=== PATIENT | female | born 2000 | race Caucasian/White ===

== ENCOUNTER → 2018-02-14 | Outpatient (CLI) | payer OTHER | LOC: FIMAGING 11:35 | PROVIDERS: ATTEND Family Medicine | DX: R10.2 Pelvic and perineal pain (principal) ==

== ENCOUNTER 2018-08-20 11:46 | Emergency (ER) | payer OTHER ==
[2018-08-20] MEDS ORDERED: NS 1,000 ML IV ONE (12:40)
[2018-08-20] MEDS ORDERED: KETOROLAC 30 MG/1 ML SDV IVP ONE (12:58)
[2018-08-20 12:59] LABS: PLATELET COUNT 302 10^3/uL (150-400)
--- NOTE | 2018-08-20 13:48 | EDPHY ---
H & P Stated Complaint: Woke up at 11am with LLQ pain radiating to left flank, N/V. Time Seen by Provider: 08/20/18 13:10 HPI/ROS: CHIEF COMPLAINT: Left flank pain HISTORY OF PRESENT ILLNESS: 18-year-old female presents with left flank pain. Sudden onset of severe left flank pain this morning. The pain waxed and wane and radiated to the left lower quadrant. Associated with vomiting and diaphoresis. No urinary symptoms, fever or diarrhea. Has an IUD in place, last menstrual period was 1 year ago. No vaginal discharge. No prior history of kidney stones or ovarian cyst. REVIEW OF SYSTEMS: complete 10 point ROS reviewed and is negative except for the noted elements in the HPI - Personal History LMP (Females 10-55): IUD In Place Current Tetanus Diphtheria and Acellular Pertussis (TDAP): Unsure - Medical/Surgical History Hx Asthma: No Hx Chronic Respiratory Disease: No Hx Diabetes: No Hx Cardiac Disease: No Hx Renal Disease: No Hx Cirrhosis: No Hx Alcoholism: No Hx HIV/AIDS: No Hx Splenectomy or Spleen Trauma: No Other PMH: Asthma. - Social History Smoking Status: Current every day smoker Alcohol Use: Sober Drug Use: None - Physical Exam Exam: General Appearance: Alert, pleasant, appears comfortable Eyes: Pupils equal and round, no conjunctival pallor ENT, Mouth: Mucous membranes moist Neck: Normal inspection Respiratory: Lungs are clear to auscultation Cardiovascular: Regular rate and rhythm Gastrointestinal: Abdomen is soft, left lower quadrant tenderness Back: No CVA tenderness Neurological: A&O, nonfocal, normal gait Skin: Warm and dry Extremities: Normal inspection Psychiatric: Mood and affect normal Constitutional: Initial Vital Signs Temperature (C) 36.7 C 08/20/18 11:50 Heart Rate 81 08/20/18 11:50 Respiratory Rate 18 08/20/18 11:50 Blood Pressure 145/98 H 08/20/18 11:50 O2 Sat (%) 98 08/20/18 11:50 O2 Delivery Mode Room Air Allergies/Adverse Reactions: Penicillins Allergy (Verified 08/20/18 11:53) Home Medications: Medication Instructions Recorded Cephalexin [Keflex (*)] 500 mg PO BID #10 cap 08/20/18 Lamictal 08/20/18 Medical Decision Making - Diagnostics Imaging Results: Abdomen/Pelvis CT 08/20/18 14:08 Impression: 1. Nonobstructive left nephrolithiasis. This exam does not exclude pyelonephritis. 2. Moderate constipation. 3. Appropriately-positioned intrauterine device. Findings were discussed with HALEY GOLDMAN MD at 14:46, on 08/20/2018. Attention: This CT examination is specifically designed to evaluate patients who are clinically suspected of having acute obstructive uropathy. This examination does not use radiographic contrast, and as such, provides only a limited evaluation of the abdomen, pelvis, and retroperitoneum. If there is further clinical suspicion for pathological conditions other than obstructive uropathy, a complete CT evaluation of the abdomen and pelvis utilizing intravenous, oral, and rectal contrast should be considered. Imaging: Discussed imaging studies w/ square dance caller Radiologist ED Course/Re-evaluation: This pt presents with left flank pain, concerning for renal colic. Toradol [address] scan ordered. CT scan of the abdomen pelvis is unremarkable. Results discussed with the patient. She is currently asymptomatic. Most likely, she has passed a kidney stone. Urinalysis reveals a possible urinary tract infection. A urine culture was sent and Keflex 500 mg orally given. Differential Diagnosis: Differential diagnosis includes though it is not limited to appendicitis, cholecystitis, diverticulitis, pyelonephritis, bowel perforation, small bowel obstruction. - Data Points Laboratory Results: Laboratory Results 08/20/18 12:25 08/20/18 12:25 Microbiology Results: MICROBIOLOGY 08/20/18 12:25 Urine,Clean Catch Urine Culture - Preliminary Medications Given: Discontinued Medications Cephalexin HCl (Keflex) 500 mg PO EDNOW ONE PRN Reason: Protocol Stop: 08/20/18 15:24 Last Admin: 08/20/18 15:30 Dose: 500 mg Sodium Chloride (Ns) 1,000 mls @ 0 mls/hr IV ONCE ONE PRN Reason: Wide Open Stop: 08/20/18 12:41 Last Admin: 08/20/18 12:40 Dose: 1,000 mls Ketorolac Tromethamine (Toradol) 30 mg IVP ONCE ONE Stop: 08/20/18 12:59 Last Admin: 08/20/18 13:01 Dose: 30 mg Point of Care Test Results: Chemistry 08/20/18 12:54 POC Sodium 144 mEq/L mEq/L (135-145) POC Potassium 3.6 mEq/L mEq/L (3.3-5.0) POC Chloride 104 mEq/L mEq/L (97-110) POC BUN 8 mg/dL mg/dL (7-23) POC Creatinine 0.7 mg/dL mg/dL (0.6-1.0) POC Glucose 77 mg/dL mg/dL (70-100) ISTAT H&H 08/20/18 12:54 POC Hgb 16.7 gm/dL H gm/dL (12.6-16.3) POC Hct 49 % H % (38-47) Departure - Departure Disposition: Home, Routine, Self-Care Clinical Impression: Renal colic on left side Urinary tract infection Qualifiers: Urinary tract infection type: acute cystitis Hematuria presence: with hematuria Qualified Code(s): N30.01 - Acute cystitis with hematuria Condition: Good Instructions: Kidney Stones (ED), Urinary Tract Infection in Women (ED) Additional Instructions: I suspect that you passed a kidney stone. Your CT scan reveals a 2 mm stone in the left kidney. This stone is not causing the pain. The flank pain occurs while the stone is passing through the ureter. You may have a urinary tract infection. You received Keflex 500 mg orally in the emergency department. I sent a urine culture to confirm. Take antibiotics as prescribed. Return for worsening symptoms or any concerns. Follow-up with your primary care physician. Referrals: Anika Kelley MD [Primary Care Provider] - As per Instructions Prescriptions: Cephalexin [Keflex (*)] 500 mg PO BID #10 cap
[2018-08-20] MEDS ORDERED: CEPHALEXIN 500 MG CAP PO ONE (15:23)
[2018-08-20 15:40] VITALS: BP 102/70
== END 2018-08-20 15:39 | disposition home or self-care (01) ==
DX: N20.0 Calculus of kidney (principal); N30.01 Acute cystitis with hematuria; Z97.5 Presence of (intrauterine) contraceptive device; E86.9 Volume depletion, unspecified
CPT/HCPCS: 82435-PO; 82565-PO; 82947-PO; 84132-PO; 84295-PO; 84520-PO; 85014-ER; 96374; J1885